=== PATIENT | female | born 1990 | race Caucasian/White ===

== ENCOUNTER 2017-02-25 06:35 | Inpatient (IN) | payer OTHER ==
[~2017-02-25] VITALS: Ht 160 cm; Wt 84.7 kg
[~2017-02-25 06:35] MED LIST: PREN1TAB79 PO
[2017-02-25 06:48] VITALS: BP 108/74; PULSE 74; RESP 18; Ht 160 cm; Wt 84.7 kg
--- NOTE | 2017-02-25 08:55 | TRIAGE ---
OB Triage Datetime Report Generated by CPN: 02/25/2017 08:55 Datetime: 02/25/2017 08:00 Stage of : OB Triage Maternal Assessment Level of Consciousness: Fully Conscious Labor Evaluation Frequency: 5UC/HR Monitor Mode: External Duration (sec)2399: 70-120 Quality: Mild Resting Tone Jagual: Relaxed Heart Rate FHR Baseline Rate: 125 Monitor Mode: External US Variability: Moderate 6-25 bpm Accelerations: 15X15 Decelerations: None Category: Category I Pain Assessment Pain Scale: 0 Pain Goal: 3 Membrane Status: Intact Vaginal Bleeding: None Datetime: 02/25/2017 07:02 Stage of : OB Triage Labor Evaluation Frequency: X1 Monitor Mode: External Duration (sec)2399: 130 Pattern: Normal: <= 5 Contractions in 10 Minutes Resting Tone Jagual: Relaxed Monitor Mode: External US Variability: Moderate 6-25 bpm Accelerations: 15X15 Decelerations: None Category: Category I Datetime: 02/25/2017 07:00 Stage of : OB Triage Datetime: 02/25/2017 06:59 Vaginal Exam Dilatation (cms): 2.0 Effacement (%): 50 Station: -3 Exam By: Riya LESLIE Vaginal Bleeding: None Cervix, Consistency: Soft Cervix, Position: Midposition Presentation 'A': Cephalic Datetime: 02/25/2017 06:48 Monitor Mode: External Contraction Comments: ABDOMEN SOFT UPON PALPATION Comments: PT REPORTED +FM Datetime: 02/25/2017 06:45 Stage of : OB Triage Maternal Assessment Level of Consciousness: Fully Conscious DTR's/Clonus: DTRs 2+; No Clonus Headache: Denies Blurred Vision: No Respiratory Effort: Unlabored; Regular Rhythm; Equal Expansion Breath Sounds, Left: Clear and Equal Breath Sounds, Right: Clear and Equal Nausea/Vomiting: Denies RUQ Epigastric Pain: Denies Lower Extremities Edema: None Degree: None Upper Extremities Edema: None Degree: None Facial Edema: None Temperature Route: Oral Fall Risk Assessment History of Falling: (0) No Secondary Diagnosis: (0) No Ambulatory Aid: (0) Bedrest/Nurse Assist IV Therapy: (0) No Gait: (0) Normal/Bedrest/Immobile Mental Status: (0) Oriented to Own Ability Fall Score: 0 Fall Risk Score Definition: No Risk: No action required Pain Assessment Pain Scale: 7 Pain Presence: Intermittent Pain Type: Contraction Pain Location: Abdomen; Back Pain Relief Measures: Comfort Measures Datetime: 02/25/2017 06:43 Time of Arrival: 02/25/2017 06:28 EGA: 39.6 Arrived By: Wheelchair Arrived From: Home Chief Complaint: CONTRACTIONS SINCE 2300 Movement: Present Contractions: Irregular Rupture of Membranes: Denies Vaginal Bleeding: None Vaginal Discharge: Denies Recent Sexual Intercouse: Denies Abdominal Trauma: Not Applicable Patient Complaints: Contractions Time Provider Notified: 02/25/2017 07:00 Provider Notified: DR. GREWAL Initial Plan: EFM, SVE, CALL OB Datetime: 02/25/2017 06:42 Contraction Comments: APPLIED Comments: APPLIED
--- NOTE | 2017-02-25 09:41 | HP ---
Date/Time of Note Date/Time of Note DATE: 02/25/17 TIME: 09:38 OB - History Hx of Present Free Text/Dictation 26 YO with IUP at 39 weeks who reports in labor labor. I recommended her to go home and return in active labor, but she reports the UCs are painful and desires to be admitted. she denies LOF per vagina or bleeding. reports good FM. Care: Good Care Ultrasounds: Normal mid trimester US Obstetrical Complications: Other (+ CT in PNC) Medical Complications: None Past Family/Social History * Past Medical, Surgical, Family and Obstetric Histories reviewed from chart. OB Admission Exam Vital Signs Vital Signs Vital Signs Date Time Temp Pulse Resp B/P Pulse Ox O2 Delivery O2 Flow Rate FiO2 02/25/17 06:48 97.6 74 18 108/74 Room Air Physical Exam HEENT: WNL Heart: Rhythm Normal Lungs: Clear, Equal Abdomen: WNL Extremities: Normal Reflexes: Normal Cervical Dilatation: 3cm Effacement: 25% Station: -3 OB Assessment/Plan Other Assessment: early labor Plan: Expectant Management GAYATRI GREWAL MD Feb 25, 2017 09:41
[2017-02-25] MEDS ORDERED: LACTATED RINGER'S 1,000 ML IV PRN (09:55)
[2017-02-25] MEDS ORDERED: LIDOCAINE 1% (MPF) 30 ML INJ INJ PRN (10:00)
[2017-02-25] MEDS ORDERED: OXYTOCIN 30 UNITS/LR 500 ML IV PRN ×2 (10:00→14:00)
[2017-02-25] MEDS ORDERED: IBUPROFEN 600 MG TAB PO PRN (10:00)
[2017-02-25] MEDS ORDERED: OXYTOCIN 30 UNITS/LR 500 ML IV SCH ×2 (10:00)
[2017-02-25] MEDS ORDERED: BUTORPHANOL 2 MG INJ IV PRN (10:00)
[2017-02-25] MEDS ORDERED: MISOPROSTOL 200 MCG TAB PR PRN ×2 (10:00→14:00)
[2017-02-25] MEDS ORDERED: METHYLERGONOVINE 0.2 MG INJ IM PRN (10:00)
[2017-02-25] MEDS ORDERED: CARBOPROST 250 MCG INJ IM PRN ×2 (10:00→14:00)
[2017-02-25 10:05] LABS: BASOPHIL # 0.1 10^3/ul (0.0-0.1); BASOPHILS % 0.5 % (0.0-2.0); EOSINOPHILS # 0.1 10^3/ul (0.0-0.5); EOSINOPHILS % 1.4 % (0.0-7.0); HEMATOCRIT 35.2 % (37.0-47.0); HEMOGLOBIN 10.8 g/dl (12.0-16.0); LYMPHOCYTES # 2.6 10^3/ul (0.8-2.9); MEAN CORPUSCULAR HEMOGLOBIN 23.8 pg (29.0-33.0); MEAN CORPUSCULAR HGB CONC 30.7 g/dl (32.0-37.0); MEAN CORPUSCULAR VOLUME 77.7 fl (82.0-101.0); MONOCYTE # 0.7 10^3/ul (0.3-0.9); MONOCYTES % 7.3 % (0.0-11.0); NEUTROPHIL # 5.7 10^3/ul (1.6-7.5); NEUTROPHILS % 62.5 % (39.0-77.0); PLATELET COUNT 288 10^3/UL (140-415); RED BLOOD COUNT 4.53 10^6/ul (4.20-5.40); RED CELL DISTRIBUTION WIDTH 15.6 % (11.5-14.5); WHITE BLOOD COUNT 9.1 10^3/ul (4.8-10.8)
[2017-02-25 10:09] LABS: INR 0.94; PROTIME 12.6 Sec (12.2-14.2)
[2017-02-25 10:10] LABS: PARTIAL THROMBOPLASTIN TIME 31.3 Sec (25.0-35.0)
[2017-02-25] MEDS ORDERED: FENTAnyl 2MCG/ML-ROPIV 0.2% 100 ML ONE (10:35)
[2017-02-25] MEDS: LACTATED RINGER'S 1,000 ML IV SCH ×2 (10:40→10:53)
[2017-02-25] MEDS ORDERED: ONDANSETRON 4 MG INJ ONE (10:53)
[2017-02-25] MEDS ORDERED: DIPHENHYDRAMINE 50 MG INJ ONE (10:53)
--- NOTE | 2017-02-25 13:58 | LDN ---
Date/Time of Note Date/Time of Note DATE: 02/25/17 TIME: 13:56 Delivery Summary s/p of Viable female infant Weeks of Gestation 39 weeks Placenta Delivered: Spontaneously Meconium: none Episiotomy: No Laceration repair: small superficial 1st degree perineal laceartion was repaired with 3-0 Chromic with SH needle Anesthesia type: Epidural Sponge & Needle done & correct: Yes All needle counts correct: Yes Any foreign bodies felt in the: No Problems: Delivery Information Sex Sex: female Apgars 1 Minute: 9 5 Minute: 9 Suctioning Nose & mouth suctioned at [place]: No Delee suction performed: No Umbilical Cord Umbilical cord with: 3 Vessels Cord presentations: no nuchal cord Cord Blood was obtained: Yes Mother & Baby Disposition Disposition Mom & Baby to Maternity; Good: Yes GAYATRI GREWAL MD Feb 25, 2017 13:58
[2017-02-25] MEDS ORDERED: LANOLIN 7 GM TUBE TOP PRN (14:00)
[2017-02-25] MEDS ORDERED: BENZOCAINE 20% 56 ML SPRAY TOP PRN (14:00)
[2017-02-25] MEDS ORDERED: WITCH HAZEL/GLYCERIN PAD PR PRN (14:00)
[2017-02-25] MEDS ORDERED: SENNA/DOCUSATE NA (8.6MG/50MG) TAB PO PRN (14:00)
[2017-02-25] MEDS ORDERED: DIPHENHYDRAMINE 25 MG CAP PO PRN (14:00)
[2017-02-25] MEDS ORDERED: DIBUCAINE 1% 30 GM OINT PR PRN (14:00)
[2017-02-25] MEDS ORDERED: HYDROCODONE/APAP (5/325) TAB PO PRN ×2 (14:00)
[2017-02-25] MEDS ORDERED: DIPHENHYDRAMINE 50 MG INJ IV PRN (14:00)
[2017-02-25] MEDS ORDERED: NA PHOSPHATE/BIPHOS 133 ML ENEMA PR PRN (14:00)
[2017-02-25] MEDS ORDERED: ONDANSETRON 4 MG INJ IV PRN (14:00)
[2017-02-25] MEDS ORDERED: MAGNESIUM HYDROXIDE 30ML CUP PO PRN (14:00)
[2017-02-25] MEDS ORDERED: ONDANSETRON 4 MG TAB PO PRN (14:00)
[2017-02-25 16:10] VITALS: BP 105/61; PULSE 79; RESP 16
[2017-02-25 16:45] VITALS: BP 109/71; PULSE 80; RESP 14
[2017-02-25] MEDS: IBUPROFEN 600 MG TAB PO SCH (17:09)
[2017-02-25] MEDS ORDERED: INFLUENZA VIRUS VACCINE 0.5 ML (DISPENSING) IM* ONE (18:30)
[2017-02-25] MEDS: LACTATED RINGER'S 1,000 ML IV* SCH ×2 (19:14→21:59)
[2017-02-25 20:00] VITALS: BP 109/56; PULSE 71; RESP 20
[2017-02-25] MEDS ORDERED: SENNA/DOCUSATE NA (8.6MG/50MG) TAB PO SCH (21:00)
[2017-02-26 00:04] VITALS: BP 106/60; PULSE 68; RESP 18
[2017-02-26] MEDS: IBUPROFEN 600 MG TAB PO SCH ×5 (01:19→23:25)
[2017-02-26 04:00] VITALS: BP 104/56; PULSE 80; RESP 18
[2017-02-26] MEDS: LACTATED RINGER'S 1,000 ML IV* SCH (05:59)
[2017-02-26 08:00] VITALS: BP 88/53; PULSE 62; RESP 16
[2017-02-26] MEDS ORDERED: DIPHENHYDRAMINE 25 MG CAP PO PRN (08:30)
[2017-02-26] MEDS ORDERED: HYDROCODONE/APAP (5/325) TAB PO PRN ×2 (08:30)
[2017-02-26] MEDS ORDERED: LANOLIN 7 GM TUBE TOP PRN (08:30)
[2017-02-26] MEDS ORDERED: BENZOCAINE 20% 56 ML SPRAY TOP PRN (08:30)
[2017-02-26] MEDS ORDERED: WITCH HAZEL/GLYCERIN PAD PR PRN (08:30)
[2017-02-26] MEDS ORDERED: ONDANSETRON 4 MG TAB PO PRN (08:30)
[2017-02-26] MEDS ORDERED: MISOPROSTOL 200 MCG TAB PR PRN (08:30)
[2017-02-26] MEDS ORDERED: CARBOPROST 250 MCG INJ IM PRN (08:30)
[2017-02-26] MEDS ORDERED: MAGNESIUM HYDROXIDE 30ML CUP PO PRN (08:30)
[2017-02-26] MEDS ORDERED: METHYLERGONOVINE 0.2 MG INJ IM PRN (08:30)
[2017-02-26] MEDS ORDERED: OXYTOCIN 30 UNITS/LR 500 ML IV PRN (08:30)
[2017-02-26] MEDS ORDERED: NA PHOSPHATE/BIPHOS 133 ML ENEMA PR PRN (08:30)
[2017-02-26] MEDS: SENNA/DOCUSATE NA (8.6MG/50MG) TAB PO SCH ×2 (09:45→20:34)
[2017-02-26 09:47] LABS: BASOPHIL # 0.1 10^3/ul (0.0-0.1); BASOPHILS % 0.3 % (0.0-2.0); EOSINOPHILS # 0.1 10^3/ul (0.0-0.5); EOSINOPHILS % 0.5 % (0.0-7.0); HEMATOCRIT 33.5 % (37.0-47.0); HEMOGLOBIN 10.4 g/dl (12.0-16.0); LYMPHOCYTES # 2.3 10^3/ul (0.8-2.9); LYMPHOCYTES % 15.5 % (15.0-51.0); MEAN CORPUSCULAR HEMOGLOBIN 24.2 pg (29.0-33.0); MEAN CORPUSCULAR VOLUME 78.1 fl (82.0-101.0); MEAN PLATELET VOLUME 10.9 fl (7.4-10.4); MONOCYTE # 0.8 10^3/ul (0.3-0.9); MONOCYTES % 5.2 % (0.0-11.0); NEUTROPHIL # 11.3 10^3/ul (1.6-7.5); PLATELET COUNT 252 10^3/UL (140-415); RED BLOOD COUNT 4.29 10^6/ul (4.20-5.40); RED CELL DISTRIBUTION WIDTH 15.8 % (11.5-14.5); WHITE BLOOD COUNT 14.5 10^3/ul (4.8-10.8)
[2017-02-26 16:30] VITALS: BP 110/71; PULSE 71; RESP 16
[2017-02-26 19:50] VITALS: BP 105/67; PULSE 69; RESP 20
--- NOTE | 2017-02-26 20:53 | PN ---
Date/Time of Note Date/Time of Note DATE: 02/26/17 TIME: 20:51 OB Subjective Subjective Subjective Denies any complaint. Breast-feeding. Lochia in the amount of menses. Ambulated. Urinated. Denies any complaint. OB Objective Objective Objective General appearance: Alert and oriented 4. Does not appear to be in any acute distress. Abdomen: Soft, gravid, fundus firm at the level about 3 cm below the umbilicus. No tenderness in palpation of the uterine fundus her abdomen. No rebound tenderness Breasts: No evidence of engorgement of mastitis or nipple fissure Extremities: No calf tenderness, no cords, negative Homans sign Hematology - 72 Hrs Test 02/25/17 09:05 02/26/17 08:44 White Blood Count 9.110^3/ul (4.8-10.8) # 14.510^3/ul (4.8-10.8) #H Red Blood Count 4.5310^6/ul (4.20-5.40) 4.2910^6/ul (4.20-5.40) Hemoglobin 10.8g/dl (12.0-16.0) L 10.4g/dl (12.0-16.0) L Hematocrit 35.2% (37.0-47.0) L 33.5% (37.0-47.0) L Mean Corpuscular Volume 77.7fl (82.0-101.0) L 78.1fl (82.0-101.0) L Mean Corpuscular Hemoglobin 23.8pg (29.0-33.0) L 24.2pg (29.0-33.0) L Mean Corpuscular Hemoglobin Concent 30.7g/dl (32.0-37.0) L 31.0g/dl (32.0-37.0) L Red Cell Distribution Width 15.6% (11.5-14.5) H 15.8% (11.5-14.5) H Platelet Count 53433^3/UL (140-415) 06943^3/UL (140-415) Mean Platelet Volume 11.0fl (7.4-10.4) H 10.9fl (7.4-10.4) H Neutrophils % 62.5% (39.0-77.0) 78.0% (39.0-77.0) H Lymphocytes % 28.0% (15.0-51.0) 15.5% (15.0-51.0) Monocytes % 7.3% (0.0-11.0) 5.2% (0.0-11.0) Eosinophils % 1.4% (0.0-7.0) 0.5% (0.0-7.0) Basophils % 0.5% (0.0-2.0) 0.3% (0.0-2.0) Nucleated Red Blood Cells % 0.0/100WBC (0.0-0.0) 0.0/100WBC (0.0-0.0) Neutrophils # 5.710^3/ul (1.6-7.5) 11.310^3/ul (1.6-7.5) H Lymphocytes # 2.610^3/ul (0.8-2.9) 2.310^3/ul (0.8-2.9) Monocytes # 0.710^3/ul (0.3-0.9) 0.810^3/ul (0.3-0.9) Eosinophils # 0.110^3/ul (0.0-0.5) 0.110^3/ul (0.0-0.5) Basophils # 0.110^3/ul (0.0-0.1) 0.110^3/ul (0.0-0.1) Nucleated Red Blood Cells # 0.010^3/ul (0.0-0.0) 0.010^3/ul (0.0-0.0) OB Assessment/Plan Other Assessment: Status post at 39 weeks and 6 days Doing well Leukocytosis,. Reactive Mild anemia, asymptomatic Continue routine care Anticipate DC home tomorrow MACHO ARNOLD MD Feb 26, 2017 20:53
[2017-02-27 04:00] VITALS: BP 105/60; PULSE 73; RESP 21
[2017-02-27] MEDS: IBUPROFEN 600 MG TAB PO SCH ×2 (05:45→13:11)
[2017-02-27 08:00] VITALS: BP 115/70; PULSE 64; RESP 16
[2017-02-27] MEDS ORDERED: MEASLES,MUMPS,RUBELLA VACCINE INJ SC* ONE (09:00)
[2017-02-27] MEDS ORDERED: VARICELLA VACCINE LIVE/PF 1,350 UNIT/0.5 ML ML SC* ONE (09:00)
[2017-02-27] MEDS ORDERED: DIPHTH/TET/ACEL PERTUSS (ADULT) 0.5 ML VIAL IM* ONE ×2 (09:00→11:00)
[2017-02-27] MEDS: SENNA/DOCUSATE NA (8.6MG/50MG) TAB PO SCH (09:05)
--- NOTE | 2017-02-27 11:30 | DS ---
Date/Time of Note Date/Time of Note DATE: 02/27/17 TIME: 11:27 Obstetrical Discharge Record Final Diagnosis Final Diagnosis: Term delivered Other Final Diagnosis First degree perineal laceration was repaired Vaginal Delivery Obstetrical Delivery: Spontaneous Complications Rupture of Membranes: No Condition on Discharge Physical Assessment Last Vitals: Post delivery day 2 Doing Well Afebrile Ambulatory Chest Clear Breasts are soft , Nipples are intact Abdomen is soft Fundus is firm Moderate amount of lochia Perineum is healing well ,no evidence of infection No calf tenderness No ankle edema Current Medications Medications (Trade) Dose Ordered Sig/[place] Route PRN Reason Start Time Stop Time Status Last Admin Dose Admin Lactated Ringer's (Lr) 1,000 ml @ 125 mls/hr Q8H IV 02/25/17 09:55 02/25/17 14:08 DC 02/25/17 10:53 Butorphanol Tartrate (Stadol) 2 mg Q2H PRN IV PAIN 02/25/17 10:00 02/26/17 07:55 DC Lidocaine 30 ml 30 ml ONCE PRN INJ EPISIOTOMY/TEARING 02/25/17 10:00 02/26/17 07:55 DC Oxytocin/Lactated Ringer's 500 ml @ 125 mls/hr ONCE -MAY REPEAT X1 IV 02/25/17 10:00 02/26/17 07:55 DC 02/25/17 13:50 Oxytocin/Lactated Ringer's 500 ml @ 125 mls/hr ONCE IV 02/25/17 10:00 02/26/17 07:55 DC 02/25/17 14:09 Ibuprofen 600 mg 600 mg ONCE PRN PO Mild Pain (Pain Score 1-3) 02/25/17 10:00 02/26/17 07:55 DC Lactated Ringer's 1,000 ml @ 2,000 mls/hr Q30M PRN IV PRE-EPIDURAL BOLUS 02/25/17 09:55 02/26/17 07:55 DC Oxytocin/Lactated Ringer's 500 ml @ 0 mls/hr ONCE PRN IV For Hemorrhage Management 02/25/17 10:00 02/25/17 14:08 DC Methylergonovine Maleate (Methergine) 0.2 mg ONCE PRN IM VAGINAL BLEEDING 02/25/17 10:00 02/26/17 07:55 DC Carboprost Tromethamine (Hemabate) 250 mcg ONCE PRN IM VAGINAL BLEEDING 02/25/17 10:00 02/25/17 14:08 DC Misoprostol 1000 mcg 1,000 mcg ONCE PRN SD VAGINAL BLEEDING 02/25/17 10:00 02/25/17 14:08 DC Fentanyl/ Ropivacaine 100 ml @ ud STK-MED ONCE .ROUTE 02/25/17 10:35 02/25/17 10:36 DC Ondansetron HCl (Zofran Inj) 4 mg STK-MED ONCE .ROUTE 02/25/17 10:53 02/25/17 10:54 DC Diphenhydramine HCl 50 mg 50 mg STK-MED ONCE .ROUTE 02/25/17 10:53 02/25/17 10:54 DC Lactated Ringer's (Lr) 1,000 ml @ 125 mls/hr Q8H IV* 02/25/17 13:59 02/26/17 07:55 DC 02/25/17 19:14 Ibuprofen (Motrin) 600 mg Q6 PO 02/25/17 18:00 02/26/17 07:55 DC 02/26/17 06:27 Acetaminophen/ Hydrocodone Bitart (Tiff (5/325)) 1 tab Q4H PRN PO PAIN LEVEL 1-5 02/25/17 14:00 02/26/17 07:55 DC Acetaminophen/ Hydrocodone Bitart (Tiff (5/325)) 2 tab Q4H PRN PO PAIN LEVEL 6-10 02/25/17 14:00 02/26/17 07:55 DC Ondansetron HCl (Zofran Inj) 4 mg Q6H PRN IV NAUSEA AND/OR VOMITING 02/25/17 14:00 02/26/17 07:55 DC Ondansetron HCl (Zofran Tab) 4 mg Q6H PRN PO NAUSEA AND/OR VOMITING 02/25/17 14:00 02/26/17 07:55 DC Diphenhydramine HCl (Benadryl) 25 mg Q6H PRN PO PRURITUS 02/25/17 14:00 02/26/17 07:55 DC Diphenhydramine HCl (Benadryl) 25 mg Q6H PRN IV PRURITUS 02/25/17 14:00 02/26/17 07:55 DC Senna/Docusate Sodium (Senokot-S) 1 tab BID PO 02/25/17 21:00 02/26/17 07:55 DC 02/25/17 22:10 Senna/Docusate Sodium (Senokot-S) 1 tab BID PRN PO CONSTIPATION 02/25/17 14:00 02/26/17 07:55 DC Magnesium Hydroxide (Milk Of Mag) 30 ml Q12H PRN PO CONSTIPATION 02/25/17 14:00 02/26/17 07:55 DC Sodium Biphosphate/ Sodium Phosphate (Fleet Enema) 133 ml DAILY PRN SD CONSTIPATION 02/25/17 14:00 02/26/17 07:55 DC Witch Deborah/ Glycerin (Tucks Pads) 1 pad BEDSIDE MEDICATION PRN SD HEMORRHOID/EPISIOTMY PAIN 02/25/17 14:00 02/26/17 07:55 DC 02/25/17 17:07 Benzocaine (Dermoplast Herminie) 1 spray BEDSIDE MEDICATION PRN TOP HEMORRHOID/EPISIOTMY PAIN 02/25/17 14:00 02/26/17 07:55 DC 02/25/17 17:08 Dibucaine (Nupercainal) 1 applic BEDSIDE MEDICATION PRN SD HEMORRHOID/EPISIOTMY PAIN 02/25/17 14:00 02/26/17 07:55 DC 02/25/17 17:08 Lanolin ([id number]) 1 applic BEDSIDE MEDICATION PRN TOP BEDSIDE FOR DAVONTE TO NIPPLES 02/25/17 14:00 02/26/17 07:55 DC 02/25/17 17:08 Measles/Mumps/ Rubella Vaccine Live (Mmr Ii Vaccine) 0.5 ml ONCE ONCE SC* 02/27/17 09:00 02/27/17 09:00 DC Diphtheria/ Tetanus/Acell Pertussis (Adacel) 0.5 ml ONCE ONCE IM* 02/27/17 09:00 02/27/17 09:00 Cancel Varicella Virus Vaccine Live 1350 unit 1,350 unit ONCE ONCE SC* 02/27/17 09:00 02/27/17 09:00 DC Oxytocin/Lactated Ringer's 500 ml @ 0 mls/hr ONCE PRN IV For Hemorrhage Management 02/25/17 14:00 02/26/17 07:55 DC Carboprost Tromethamine (Hemabate) 250 mcg ONCE PRN IM VAGINAL BLEEDING 02/25/17 14:00 02/26/17 07:55 DC Misoprostol (Cytotec) 1,000 mcg ONCE PRN SD VAGINAL BLEEDING 02/25/17 14:00 02/26/17 07:55 DC Influenza Virus Vaccine (Fluzone) 0.5 ml ONCE ONCE IM* 02/25/17 18:30 02/25/17 18:31 DC 02/26/17 16:23 Ibuprofen (Motrin) 600 mg Q6 PO 02/26/17 12:00 02/27/17 05:45 Acetaminophen/ Hydrocodone Bitart (Tiff (5/325)) 1 tab Q4H PRN PO PAIN LEVEL 1-5 02/26/17 08:30 Acetaminophen/ Hydrocodone Bitart (Tiff (5/325)) 2 tab Q4H PRN PO PAIN LEVEL 6-10 02/26/17 08:30 Ondansetron HCl (Zofran Tab) 4 mg Q6H PRN PO NAUSEA AND/OR VOMITING 02/26/17 08:30 Diphenhydramine HCl (Benadryl) 25 mg Q6H PRN PO PRURITUS 02/26/17 08:30 Senna/Docusate Sodium (Senokot-S) 1 tab BID PO 02/26/17 09:00 02/27/17 09:05 Magnesium Hydroxide (Milk Of Mag) 30 ml Q12H PRN PO CONSTIPATION 02/26/17 08:30 Sodium Biphosphate/ Sodium Phosphate (Fleet Enema) 133 ml DAILY PRN SD CONSTIPATION 02/26/17 08:30 Witch Deborah/ Glycerin (Tucks Pads) 1 pad BEDSIDE MEDICATION PRN SD HEMORRHOID/EPISIOTMY PAIN 02/26/17 08:30 02/26/17 20:36 Benzocaine (Dermoplast Herminie) 1 spray BEDSIDE MEDICATION PRN TOP HEMORRHOID/EPISIOTMY PAIN 02/26/17 08:30 02/26/17 20:35 Lanolin 1 applic 1 applic BEDSIDE MEDICATION PRN TOP BEDSIDE FOR DAVONTE TO NIPPLES 02/26/17 08:30 02/26/17 20:36 Oxytocin/Lactated Ringer's 500 ml @ 0 mls/hr ONCE PRN IV For Hemorrhage Management 02/26/17 08:30 Methylergonovine Maleate (Methergine) 0.2 mg ONCE PRN IM VAGINAL BLEEDING 02/26/17 08:30 Carboprost Tromethamine (Hemabate) 250 mcg ONCE PRN IM VAGINAL BLEEDING 02/26/17 08:30 Misoprostol (Cytotec) 1,000 mcg ONCE PRN SD VAGINAL BLEEDING 02/26/17 08:30 Diphtheria/ Tetanus/Acell Pertussis (Adacel) 0.5 ml ONCE ONCE IM* 02/27/17 11:00 02/27/17 11:01 DC New born is doing well, Breast feeding Bowel Movement: Yes Breast: Soft, non-tender Fundus: Firm Episiotomy: Healing well Calf Tenderness: No Patient Condition: Good NIMISHA RHODES MD Feb 27, 2017 11:30
== END 2017-02-27 13:40 | disposition home or self-care (01) | DRG 775 ==
LOC: OBT 06:35 → L-D 06:35 → OBT 09:17 → PP1 16:49
PROVIDERS: ADMIT Specialist; ATTEND Specialist
PROC: 10E0XZZ Delivery of Products of Conception, External Approach (ICD-10-PCS; principal; 2017-02-25)
PROC: 0HQ9XZZ Repair Perineum Skin, External Approach (ICD-10-PCS; 2017-02-25)
PROC: 3E033VJ Introduction of Other Hormone into Peripheral Vein, Percutaneous Approach (ICD-10-PCS; 2017-02-25)
DX: O70.0 First degree perineal laceration during delivery (principal); Z37.0 Single live birth; Z3A.39 39 weeks gestation of pregnancy
CPT/HCPCS: 62319; 85025; 85610; 85730; 86592; 86900; 86901; 87340; 90686; 90715; G0463; J1200; J2405; J2590; J3010; J7120